=== PATIENT | female | born 1960 | race Two or more races ===

== ENCOUNTER 2016-05-20 14:12 | Emergency (ER) | payer OTHER ==
[~2016-05-20] VITALS: Ht 165.1 cm; Wt 63.5 kg
--- NOTE | 2016-05-20 14:25 | NUR ---
Presents self to ed due to right leg pain, 10/10, stabbing like pain x 2 days. Patient noted with unsteady gait. Denies injury. Skin is warm to touch and non diaphoretic. Afebrile. Pending MD evaluation.
[2016-05-20] MEDS ORDERED: HYDROCODONE/APAP 10/325MG 1 EA TABLET ONE (14:51)
[2016-05-20] MEDS ORDERED: ONDANSETRON 4 MG TAB.RAPDIS ONE (14:51)
[2016-05-20] MEDS ORDERED: HYDROCODONE/APAP 10/325MG 1 EA TABLET PO ONE (15:00)
[2016-05-20] MEDS ORDERED: ONDANSETRON 4 MG TAB.RAPDIS SL ONE (15:00)
--- NOTE | 2016-05-20 15:37 | NUR ---
Patient discharged to home in stable condition. Written and verbal after care instructions given. Patient verbalizes understanding of instruction.
[2016-05-20 15:38] VITALS: BP 149/80
== END 2016-05-20 15:38 | disposition home or self-care (01) ==
LOC: ER 14:16
DX: M79.604 Pain in right leg (principal); F17.200 Nicotine dependence, unspecified, uncomplicated
CPT/HCPCS: 73590; 93971; 99284; 99406; A4606; Q0162; Z7610